=== PATIENT | male | born 1995 | race Caucasian/White ===

== ENCOUNTER 2019-06-02 16:20 | Emergency (ER) | payer OTHER ==
[2019-06-02 16:50] VITALS: BP 146/80
--- NOTE | 2019-06-02 16:52 | UC ---
UC General HPI - HPI Summary HPI Summary: pt dove for a sunday and jammed his R 5th finger and adjacent hand. he noted some discomfort. he continue to play but then noted the area to be suddenly swollen. - History of Current Complaint Stated Complaint: RT HAND INJURY Time Seen by Provider: 06/02/19 16:42 Hx Obtained From: Patient Onset/Duration: Sudden Onset Timing: Constant Associated Signs & Symptoms: Negative: Weakness - Allergy/Home Medications Allergies/Adverse Reactions: Allergies Allergy/AdvReac Type Severity Reaction Status Date / Time No Known Allergies Allergy Verified 06/02/19 16:50 Home Medications: Home Medications Naproxen Sodium [Aleve] 660 mg PO BID PRN 06/02/19 [History Confirmed 06/02/19] PMH/Surg Hx/FS Hx/Imm Hx Previously Healthy: Yes - Surgical History Surgical History: None - Family History Known Family History: Positive: Non-Contributory - Social History Occupation: Student Review of Systems All Other Systems Reviewed And Are Negative: No Constitutional: Negative: Fever Skin: Negative: Rash Neurological: Negative: Paresthesia Physical Exam Triage Information Reviewed: Yes Appearance: Well-Appearing Vital Signs Reviewed: Yes Musculoskeletal: Positive: Other: - RUE: elbow, forearm and wrist without deformity or tenderness. hand: swelling to 5th finger and adjacent hand with mild tenderness. rest of hand is unremarkable. hand has full s/v/m function. Neurological: Positive: Alert Psychological: Positive: Age Appropriate Behavior Skin Exam: Normal Diagnostics - Radiology No standard instances Radiology Interpretation Completed By: Radiologist - IMPRESSION: Spiral fracture of the proximal phalanx fifth digit without significant displacement. Course/Dx - Course Course Of Treatment: PROCEDURE: soft cotton placed between 4th/5th fingers. 4th/5th fingers kayden taped with single piece of small tape to distal fingers. Fiberglass ulnar gutter from tips of 4th/5th finger to below wrist applied R hand. Finger tips have gross s/v pre and post splint. joints above and below stabilized. - Differential Dx - Multi-Symptom Differential Diagnoses: Other - NON DISPLACED [place] FX R PROXIMAL 5TH PHALANX - Diagnoses Provider Diagnosis: Finger fracture, right Discharge ED - Sign-Out/Discharge Documenting (check all that apply): Patient Departure All imaging exams completed and their final reports reviewed: Yes - Discharge Plan Condition: Stable Disposition: HOME Patient Education Materials: Finger Fracture (ED), Splint Care (ED) Referrals: Bella Foster MD [Medical Doctor] - Additional Instructions: CALL IN AM TO BE SEEN SOON POSSIBLE. KEEP SPLINT ON AND DRY AT ALL TIMES. NO SPORTS/GYM ACTIVITY UNTIL CLEARED. - Billing Disposition and Condition Condition: STABLE Disposition: Home
== END 2019-06-02 17:53 | disposition home or self-care (01) ==
LOC: UCCORT 16:20
DX: S62.616A Displaced fracture of proximal phalanx of right little finger, initial encounter for closed fracture (principal); W22.8XXA Striking against or struck by other objects, initial encounter; Y93.74 Activity, frisbee; Y92.9 Unspecified place or not applicable
CPT/HCPCS: 99201; G0463